=== PATIENT | male | born 1945 | race Caucasian/White ===

== ENCOUNTER 2023-01-03 16:29 | Emergency (ER) | payer OTHER, MEDICARE ==
[2023-01-03] MEDS ORDERED: Boostrix 0.5 ML (Tdap) VIAL (>/=7 yrs of age) ONE (17:42)
[2023-01-03] MEDS ORDERED: Amoxicillin/Potassium Clav 875 MG TAB ONE (18:18)
[2023-01-03] MEDS ORDERED: Bacitracin 1 PK ONE ×2 (18:28→18:29)
== END 2023-01-03 19:04 | disposition home or self-care (01) ==
LOC: ERS 16:29
DX: S51.851A Open bite of right forearm, initial encounter (principal); I10 Essential (primary) hypertension; E11.9 Type 2 diabetes mellitus without complications; F17.210 Nicotine dependence, cigarettes, uncomplicated; W54.0XXA Bitten by dog, initial encounter; Z79.84 Long term (current) use of oral hypoglycemic drugs; Z79.899 Other long term (current) drug therapy
CPT/HCPCS: 90471; 90715